=== PATIENT | male | born 1950 | race Caucasian/White ===

== ENCOUNTER 2023-04-29 13:26 | Emergency (ER) | payer OTHER, MEDICARE, SELFPAY ==
[2023-04-29 13:26] VITALS: BP 130/85; PULSE 82; RESP 17; TEMP 37; O2SAT 95; BMI 33.2
[2023-04-29 13:30] VITALS: BP 126/81; PULSE 85; O2SAT 95
--- NOTE | 2023-04-29 13:30 | PC.NURSE ---
CCollar placed on pt at this time
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
--- NOTE | 2023-04-29 13:55 | PC.NURSE ---
patient requested water to drink, spoke with doctor and patient is NPO at this time
[2023-04-29 14:00] VITALS: BP 138/95; PULSE 76; O2SAT 95
[2023-04-29 14:07] LABS: Chloride 103 mmol/L (98-107); Sodium 137 mmol/L (136-145)
[2023-04-29 14:08] LABS: Potassium 3.8 mmoL/L (3.5-5.1)
[2023-04-29 14:10] LABS: Blood Urea Nitrogen 18 mg/dl (9-20); Creatinine Clearance Estimated 67 mL/min (50-200); Estimated Glomerular Filt Rate 46 ml/min (>60); GFR (African American) 55 ML/MIN (>60)
[2023-04-29 14:11] LABS: Anion Gap 13.8 mEq/L (5-15); Carbon Dioxide 24 mmol/L (22.0-30.0); Glucose 151 mg/dl (74-100)
[2023-04-29 14:12] LABS: INR 2.32 (0.9-1.1); Prothrombin Time 23.9 seconds (10.1-12.5)
[2023-04-29 14:13] LABS: Basophils % 0.4 % (0.1-2.0); Eosinophils # 0.1 K/mm3 (0.0-0.4); Eosinophils % 1.3 % (0.1-12.0); Hematocrit 49.8 % (42.0-52.0); Hemoglobin 16.4 g/dL (14.1-18.0); Lymphocytes # 0.8 K/mm3 (0.7-4.5); Lymphocytes % 12.3 % (10-50); Mean Corpuscular Hemoglobin 30.9 pg (27.0-31.2); Mean Corpuscular Volume 93.7 fl (80-94); Mean Platelet Volume 8.7 fl (7.4-10.4); Monocytes # 0.5 K/mm3 (0.1-1.0); Monocytes % 6.9 % (1.7-9.3); Neutrophils # 5.5 K/mm3 (1.8-7.8); Neutrophils % 79.1 % (37.0-80.0); Platelet Count 152 K/mm3 (142-424); Red Blood Count 5.31 M/mm3 (4.60-6.20); Red Cell Distribution Width 14.8 % (11.5-17.5); White Blood Count 6.9 K/mm3 (4.8-10.8)
[2023-04-29 16:10] VITALS: BP 141/86; PULSE 74; RESP 16; TEMP 37; O2SAT 98
== END 2023-04-29 16:17 | disposition home or self-care (01) ==
PROVIDERS: Emergency Provider Emergency Medicine; PCP Family Medicine
DX: S30.1XXA Contusion of abdominal wall, initial encounter (principal); I48.20 Chronic atrial fibrillation, unspecified; V49.40XA Driver injured in collision with unspecified motor vehicles in traffic accident, initial encounter; Z79.01 Long term (current) use of anticoagulants; S39.012A Strain of muscle, fascia and tendon of lower back, initial encounter; N13.30 Unspecified hydronephrosis; N20.1 Calculus of ureter
CPT/HCPCS: 72100; 74177; 80048; 85025; 85610; 96360; 99284; 99285; Q9967